=== PATIENT | female | born 1940 ===

== ENCOUNTER → 2017-01-27 | Outpatient (CLI) | payer OTHER ==
[2017-01-27 17:59] LABS: BASO % 0.7 %; BASO ABS # 0.07 K/uL (0-0.2); COMPLETE YES; EOS % 3.8 %; HEMATOCRIT 45.8 % (37-47); IG% 0.6 %; LYMPH % 21.4 %; LYMPH ABS # 2.12 K/uL (1.2-3.4); MEAN CELL VOLUME 83.1 fL (80-100); MEAN CORPUSCULAR HEMOGLOBIN 27.6 pg (25-34); MEAN CORPUSCULAR HGB CONC 33.2 g/dl (32-36); MONO % 8.1 %; NEUT % 65.4 %; PLATELET COUNT 222 K/uL (130-400); RED BLOOD COUNT 5.51 M/uL (4.2-5.4); WHITE BLOOD COUNT 9.92 K/uL (4.8-10.8)
[2017-01-27 18:28] LABS: ALT/SGPT 28 U/L (12-78); AST/SGOT 20 U/L (15-37); BLOOD UREA NITROGEN 15 mg/dl (7-18); BUN/CREATININE RATIO 16.4 (10-20); CALCIUM 9.4 mg/dl (8.5-10.1); CARBON DIOXIDE 27 mmol/L (21-32); CHLORIDE 103 mmol/L (98-107); CHOLESTEROL 202 mg/dl (0-200); CHOLESTEROL/HDL RATIO 4.1; CREATININE 0.92 mg/dl (0.60-1.20); GLUCOSE 111 mg/dl (70-99); HDL CHOLESTEROL 49 mg/dl; LDL CHOLESTEROL CALCULATED 118 mg/dl; POTASSIUM 3.9 mmol/L (3.5-5.1); SODIUM 139 mmol/L (136-145); TRIGLYCERIDES 175 mg/dl (0-150); VERY LOW DENSITY LIPOPROT CALC 35 mg/dl
[2017-01-27 18:36] LABS: ALKALINE PHOSPHATASE 56 U/L (45-117)
[2017-01-28 05:59] LABS: ESTIMATED AVERAGE GLUCOSE 137 mg/dl; HA1C FLAG Normal (Normal)
== END | disposition home or self-care (01) ==
LOC: C.LABMFLN 11:12
PROVIDERS: ATTEND Family Medicine
DX: I10 Essential (primary) hypertension (principal); E78.5 Hyperlipidemia, unspecified; R73.01 Impaired fasting glucose

== ENCOUNTER 2018-08-30 05:04 | Inpatient (IN) ==
[2018-08-17 18:06] LABS: Basophils # (auto) 0.12 K/uL (0-0.2); Eosinophils # (auto) 1.56 K/uL (0-0.5); Eosinophils % (auto) 12.4 %; Hematocrit (blood only) 43.9 % (37-47); Immature Granulocytes # (auto) 0.09 K/uL (0.00-0.02); Immature Granulocytes % (auto) 0.7 %; Lymphocytes # (auto) 2.48 K/uL (1.2-3.4); Lymphocytes % (auto) 19.7 %; Mean Corpuscular Hgb Conc 34.2 g/dL (32-36); Mean Corpuscular Volume 86.1 fL (80-100); Monocytes # (auto) 0.82 K/uL (0.11-0.59); Monocytes % (auto) 6.5 %; Neutrophils # (auto) 7.53 K/uL (1.4-6.5); Neutrophils % (auto) 59.7 %; Platelet Count 246 K/uL (130-400); RDW Coefficient of Variation 13.8 % (11.5-14.5); RDW Standard Deviation 43.1 fL (36.4-46.3)
[2018-08-17 18:11] LABS: Appearance Urine Clear (Clear); Bilirubin Urine Negative (Negative); Blood Urine Negative (Negative); Color Urine Yellow; Glucose Urine UA Negative (Negative); Ketones Urine Negative (Negative); Leukocyte Esterase Urine Negative (Negative); Nitrite Urine Negative (Negative); Protein Urine Negative (Negative); Specific Gravity Urine 1.018 (1.000-1.030); Urobilinogen Urine Negative (Negative)
[2018-08-17 18:15] LABS: Partial Thromboplastin Ratio 1.2; Partial Thromboplastin Time 31.3 Seconds (21.0-31.0); Prothrombin Time 9.8 Seconds (9.0-12.0)
[2018-08-17 18:20] LABS: Albumin Level 3.8 gm/dl (3.4-5.0); BUN Creatinine Ratio 20.4 (10-20); Calcium 9.8 mg/dl (8.5-10.1); Creatinine Clr Calc Pharmacy 55.8 ml/min; Est GFR (African American) 74.5; Est GFR (Non-African American) 64.3; Potassium 3.5 mmol/L (3.5-5.1)
[2018-08-18 05:57] LABS: Estimated Average Glucose 143 mg/dl; Hemoglobin A1C 6.6 % (4.5-5.6)
--- NOTE | 2018-08-18 11:31 | Anesthesiology Consultation ---
Date of Service August 18, 2018 Assessment & Plan (1) Encounter for pre-operative examination: - Hx glidescope intubation: Left mastectomy with SLN biopsy= 09/23/16= Glidescope size 3, ETT 7.0 (anesthesia records scanned in) - PCP: 07/05/18: "Benign mild leukocytosis related to allergies. She is medically stable and clear for L TKA." Chart Review Chart Review: Acceptable Risk for Surgery and Patient NOT seen in Pre Admission Testing History Surgery Operation Date: 08/30/18 12:40 Proposed Procedures p Left Total Knee Arthroplasty - Som Sheets MD Height/Weight Height: 5 ft 1.5 in Weight: 89.811 kg Allergies Allergy/AdvReac Type Severity Reaction Status Date / Time atorvastatin [From Lipitor] AdvReac Mild Muscle Pain Verified 08/17/18 08:14 rosuvastatin [From Crestor] AdvReac Mild Muscle Pain Verified 08/17/18 08:14 simvastatin [From Zocor] AdvReac Mild Muscle Pain Verified 08/17/18 08:14 Medications Home Medications Medication Instructions Recorded Confirmed Last Taken amlodipine [Norvasc] 5 mg PO QAM 03/22/18 08/17/18 03/22/18 calcium carbonate-vitamin D3 2 tab PO DAILY 03/22/18 08/17/18 03/21/18 [Caltrate 600 + D] hydrochlorothiazide 12.5 mg PO QAM 03/22/18 08/17/18 03/22/18 letrozole 2.5 mg PO QPM 03/22/18 08/17/18 03/21/18 lisinopril 20 mg PO BID 03/22/18 08/17/18 03/22/18 [id number]-vtp-myxdy acid-vit K 1 dose PO QAM 03/22/18 08/17/18 03/22/18 [Multi For Her 50 Plus] sertraline [Zoloft] 50 mg PO QAM 03/22/18 08/17/18 03/22/18 sodium bicarb-sodium chloride 1 packet QAM PRN 08/17/18 08/17/18 Unknown [Sinus Rinse] Past Medical History Medical History Arthritis Depression Diabetes HGBA1C 6.6% ON PREOP LABS; NO MEDS- PCP MONITORING WITH DIET CONTROL AT THIS POINT Fatty liver Hearing deficit Hiatal hernia History of cancer LARYNX CANCER S/P RESECTION; BREAST CANCER S/P LEFT MASTECTOMY ON LETROZOLE History of gout Hypertension Obesity Past Family History Family History Father Family history of bone cancer Brother Family history of malignant melanoma Sister Family history of breast cancer Family history of pancreatic cancer Mother Family history of bladder cancer Family history of breast cancer Family history of throat cancer Past Surgical History Surgical History History of difficult intubation Left mastectomy with SLN biopsy= 09/23/16= Glidescope size 3, ETT 7.0 (anesthesia records scanned in) History of colonoscopy History of endoscopy History of hysterectomy History of left mastectomy History of throat surgery LARYNX CANCER S/P RESECTION (40 YEARS AGO) Social History Smoking Status: Never smoker Do You Dip or Chew Tobacco: No Hx Alcohol Use: No Hx Substance Use: No substance use type: does not use Testing Laboratory Results 08/17/18 11:34 08/17/18 11:34 PT 9.8 Seconds (9.0-12.0) 08/17/18 11:34 INR 1.0 (0.9-1.1) 08/17/18 11:34 APTT 31.3 Seconds (21.0-31.0) H 08/17/18 11:34 Hemoglobin A1c 6.6 % (4.5-5.6) H 08/17/18 11:34 Urine Color Yellow 08/17/18 11:49 Urine Appearance Clear (Clear) 08/17/18 11:49 Urine pH 6.0 (4.5-7.5) 08/17/18 11:49 Ur Specific [place] 1.018 (1.000-1.030) 08/17/18 11:49 Urine Protein Negative (Negative) 08/17/18 11:49 Urine Glucose (UA) Negative (Negative) 08/17/18 11:49 Urine Ketones Negative (Negative) 08/17/18 11:49 Urine Nitrite Negative (Negative) 08/17/18 11:49 Ur Leukocyte Esterase Negative (Negative) 08/17/18 11:49 Blood Type A Positive 08/17/18 11:34 Antibody Screen NEGATIVE 08/17/18 11:34 Surgeon aware of elevated WBC; felt 2/2 allergies and "benign" per PCP Electrocardiogram Date: 03/28/18 NSR at 89bpm. LAFB. Echocardiogram Date: 12/22/17 LVEF 70%. Grade I DD. No RWMA. Mild TR. PASP 28mmhg. Mild AV sclerosis. Other Testing Chest CT= 03/02/18= Minimal scattered atelectasis/scarring in both lung without f ocal airspace consolidation. Suggestive metastatic disease. Hiatal hernia. Hepatic steatosis.
--- NOTE | 2018-08-24 16:39 | Hospitalist Consultation ---
Date of Consultation August 24, 2018 Assessment & Plan (1) Osteoarthritis of left knee: S/p left TKA with Dr. Sheets on 08/24. - Post operative management per ortho - PT/OT per primary team - DVT prophylaxis per primary (2) Benign essential hypertension: On amlodipine, HCTZ, and lisinopril at home. Well-controlled with last o/p reading of 140/80. - Continue home meds (3) Asthma: Only uses a PRN inhaler as outpatient. - Albuterol PRN (4) Breast cancer: No inpatient needs. - Continue letrozole (5) Anxiety: - Continue sertraline (6) Leukocytosis: Due to eosinophilia from allergies. Follow with hematology outpatient. - No inpatient needs (7) DVT prophylaxis: Per primary team History of Present Illness Attending Physician: Som Sheets MD History of Present Illness 78yo F w/ hx of mild leukocytosis from eosinophilia, HTN, asthma, and anxiety who presents as medical management consultation. Overall, she has had long-standing left knee pain, initially treated conservatively. She underwent left TKA with Dr. Sheets on 08/24. She reports her Allergies Allergy/AdvReac Type Severity Reaction Status Date / Time atorvastatin [From Lipitor] AdvReac Mild Muscle Pain Verified 08/17/18 08:14 rosuvastatin [From Crestor] AdvReac Mild Muscle Pain Verified 08/17/18 08:14 simvastatin [From Zocor] AdvReac Mild Muscle Pain Verified 08/17/18 08:14 Home Medications Home Medications Medication Instructions Recorded Confirmed Type amlodipine [Norvasc] 5 mg PO QAM 03/22/18 08/17/18 History calcium carbonate-vitamin D3 2 tab PO DAILY 03/22/18 08/17/18 History [Caltrate 600 + D] hydrochlorothiazide 12.5 mg PO QAM 03/22/18 08/17/18 History letrozole 2.5 mg PO QPM 03/22/18 08/17/18 History lisinopril 20 mg PO BID 03/22/18 08/17/18 History xzsywpcb-mpf-hiwem acid-vit K 1 dose PO QAM 03/22/18 08/17/18 History [Multi For Her 50 Plus] sodium bicarb-sodium chloride 1 packet QAM PRN 08/17/18 08/17/18 History [Sinus Rinse] sertraline 50 mg tablet 50 mg PO QAM #90 tab 08/21/18 Rx coenzyme Q10 200 mg capsule PO .Take 1 tablet daily cap 08/23/18 08/23/18 History Patient History Medical History Anxiety (Acute) Asthma (Acute) Benign essential hypertension (Acute) Breast cancer (Acute) Hyperlipidemia (Acute) Impaired fasting glucose (Acute) Leukocytosis (Acute) Osteoarthritis of left knee (Acute) Arthritis Depression Diabetes HGBA1C 6.6% ON PREOP LABS; NO MEDS- PCP MONITORING WITH DIET CONTROL AT THIS POINT Fatty liver Hearing deficit Hiatal hernia History of cancer LARYNX CANCER S/P RESECTION; BREAST CANCER S/P LEFT MASTECTOMY ON LETROZOLE History of gout Hypertension Obesity Surgical History History of difficult intubation Left mastectomy with SLN biopsy= 09/23/16= Glidescope size 3, ETT 7.0 (anesthesia records scanned in) History of colonoscopy History of endoscopy History of hysterectomy History of left mastectomy History of throat surgery LARYNX CANCER S/P RESECTION (40 YEARS AGO) Family History Father Family history of bone cancer Brother Family history of malignant melanoma Sister Family history of breast cancer Family history of pancreatic cancer Mother Family history of bladder cancer Family history of breast cancer Family history of throat cancer Grandmother Leukemia Social History Preferred Language: [place] Communication Ability: Effective Vamp Strap Ironer Required: No Beliefs That Will Affect Care: None Current Living Situation: Alone Current Living Situation Comment: [facility] TUESDAY THROUGH TUESDAY Other Information That Helps Us Care for You: No Feels Safe at Home: Yes Safety Concerns: Feels Safe At This Time Smoking Status: Never smoker Do You Dip or Chew Tobacco: No Second Hand Exp osure: Yes (PAST EXPOSURE) Tobacco Cessation Education Requested by Patient: No Hx Alcohol Use: No Hx Substance Use: No Review of Systems Review of Systems: All systems reviewed & are unremarkable except as noted in HPI & below Physical Exam Constitutional: WD/WN, vitals as above Eyes: EOM intact bilaterally; no conjunctival abnormality ENMT: external ear and nose normal, oropharynx normal Neck: trachea midline, no thyromegaly normal visual inspection Respiratory: normal respiratory effort, lungs clear to auscultation no respiratory distress Cardiovascular: RRR, no murmur, no edema Gastrointestinal (Abdomen): Inspection/Auscultation: abdomen normal to inspection; abdomen not distended Musculoskeletal: no cyanosis or clubbing, extremities motor strength 5/5 Knee: + surgical incision (Left knee) Skin: no rashes, warm and dry Neurologic: moves all extremities and awake Psychiatric: Orientation: alert, oriented to person and cooperative PG Care Time/CCT Total # of Minutes Spent Total Time Spent with Patient: Total time spent is greater than 50% in coordination of care (as documented) at patient's floor/unit and/or counseling patient:
--- NOTE | 2018-08-29 12:45 | History and Physical Report ---
DATE OF ADMISSION: 08/30/2018 CHIEF COMPLAINT: Chronic left knee pain. HISTORY OF PRESENT ILLNESS: This is a 78-year-old female patient of Dr. Sheets'zan complaining of chronic left knee pain, longstanding, now progressively getting worse. The patient has failed conservative treatment including intraarticular injections, Tylenol, the use of a cane and the use of a brace. The patient has increased pain with weightbearing activities and her pain does interfere with her activities of daily living. The patient has been diagnosed with end-stage osteoarthritis per clinical and radiographic exams and wishes to proceed with an elective left total knee arthroplasty. PAST MEDICAL HISTORY: Benign heart murmur, hypertension, asthma, seasonal allergies, anxiety, osteoarthritis, hiatal hernia, obesity, breast cancer and vocal cord cancer. SOCIAL HISTORY: Nonsmoker, nondrinker. FAMILY HISTORY: Noncontributory. REVIEW OF SYSTEMS: Chronic left knee pain and instability. Otherwise, denies any shortness of breath, chest pain, nausea, vomiting or any other joint complaints. PAST SURGICAL HISTORY: Hysterectomy, lumpectomy, breast and vocal cord surgery. MEDICATIONS: Amlodipine 5 mg daily, letrozole 2.5 mg daily, lisinopril 20 mg daily, hydrochlorothiazide 12.5 mg daily, sertraline 50 mg daily, daily vitamin. ALLERGIES: INCLUDE STATINS. PHYSICAL EXAMINATION: GENERAL: Well-developed, well-nourished 78-year-old female in no acute distress. She is alert and oriented x3 and pleasant. HEENT: Normocephalic, atraumatic. Extraocular motions are intact. Pupils were equal and reactive to light. HEART: Regular rate and rhythm. She has got a 2/6 murmur noted. LUNGS: Clear. ABDOMEN: Soft and nontender. Bowel sounds are present. EXTREMITIES: Left knee reveals limited motion of negative 10-95 degrees. She has a mild effusion. The patient is stable. She has 4/5 strength with pain. She has crepitation with passive range of motion. NEUROLOGIC: Neurovascularly, she is intact in her left lower extremity. DIAGNOSES: Left knee end-stage osteoarthritis, benign heart murmur, asthma, seasonal allergies, anxiety, osteoarthritis, hiatal hernia, obesity, history of breast cancer and vocal cord cancer. PLAN: The patient was advised of her diagnosis. Indications, risks, benefits, postop course have all been reviewed. The patient wished to proceed with a left total knee arthroplasty. Necessary consent forms, preoperative testing clearances will be obtained.
[2018-08-30] MEDS ORDERED: METOCLOPRAMIDE HCL 10 MG TABLET PO SCH (06:00)
[2018-08-30] MEDS ORDERED: GABAPENTIN 300 MG PO SCH (06:00)
[2018-08-30] MEDS ORDERED: TRANEXAMIC ACID 1,000 MG **IV Pre-op IV SCH (06:00)
[2018-08-30] MEDS ORDERED: ROPIVACAINE 0.5% HCL/PF 150 MG, BUPIVACAINE 0.5% MPF 30 ML, EPINEPHrine 30MG/30ML (OR U... INSTIL SCH (06:00)
[2018-08-30] MEDS ORDERED: FAMOTIDINE 20 MG TAB PO SCH (06:00)
[2018-08-30] MEDS ORDERED: dexAMETHasone 4 MG TAB PO SCH (06:00)
[2018-08-30] MEDS ORDERED: CeleBREX 200 MG CAP PO SCH (06:00)
[2018-08-30] MEDS ORDERED: LR 500ML BOLUS, THEN 15ML/HR IV SCH (06:00)
[2018-08-30] MEDS ORDERED: CEFAZOLIN 2000MG 2,000 MG/15 ML SYR IV SCH (06:00)
[2018-08-30] MEDS ORDERED: ACETAMINOPHEN 500 MG TAB PO SCH (06:00)
[2018-08-30] MEDS ORDERED: BUPIVACAINE 0.5 % 5 MG/1 ML PF 10ML VIAL ONE (06:28)
[2018-08-30] MEDS ORDERED: ROPIVACAINE 0.5% 5 MG/ML 30 ML VIAL ONE (06:29)
[2018-08-30] MEDS ORDERED: TRANEXAMIC ACID 1,000 MG **IV Intra-op IV SCH (06:30)
[2018-08-30] MEDS ORDERED: MIDAZOLAM HCL 1 MG/ML 2ML VIAL ONE ×2 (06:40)
[2018-08-30] MEDS ORDERED: fentaNYL citrate 100 MCG/2 ML VIAL ONE (06:41)
[2018-08-30] MEDS ORDERED: ORTHO JOINT ANESTHETIC ONE (06:43)
[2018-08-30] MEDS ORDERED: BACITRACIN INJ 50,000 UNIT VIAL ONE (06:43)
[2018-08-30] MEDS ORDERED: ATROPINE SULFATE 0.1 MG/ML 10ML SYR IV PRN (06:48)
[2018-08-30] MEDS ORDERED: ePHEDrine sulfate 50 MG/ML AMP IV PRN (06:48)
[2018-08-30] MEDS ORDERED: ONDANSETRON INJ 2 MG/ML 2 ML VIAL IV PRN ×2 (06:48→10:24)
[2018-08-30] MEDS ORDERED: fentaNYL citrate 100 MCG/2 ML VIAL IV PRN (06:48)
--- NOTE | 2018-08-30 07:13 | History & Physical Bridge Note ---
Date of Service August 30, 2018 History & Physical Bridge Note I have examined the patient, reviewed the History & Physical and in the interval since the performance of the History & Physical I have noted the following changes of clinical significance: no changes noted
[2018-08-30] MEDS ORDERED: ePHEDrine sulfate 50 MG/ML SYR ONE (07:37)
[2018-08-30] MEDS ORDERED: PHENYLEPHRINE HCL 10 MG/ML VIAL ONE (07:37)
[2018-08-30] MEDS ORDERED: PROPOFOL IV EMULSION 10 MG/ML 20 ML VIAL IV ONE (07:37)
[2018-08-30] MEDS ORDERED: LIDOCAINE HCL 2% 2 ML VIAL/AMP(20MG/ML) INFIL ONE (08:00)
--- NOTE | 2018-08-30 09:07 | Post Operative Brief Note ---
Immediate Post Op Note v1 Date of Surgery August 30, 2018 Pre & Post Diagnosis Operation Date: 08/30/18 07:00 Pre-Op Diagnosis: LEFT KNEE OSTEOARTHRITIS,obesity bmi 37 Post-Op Diagnosis: LEFT KNEE OSTEOARTHRITIS,obesity bmi 37 Procedure Operation Date: 08/30/18 07:00 Actual Procedures p Left Total Knee Arthroplasty(Left) - Som Sheets MD Surgeon Som Sheets MD Network Firewall Engineer Elkin RENO Estimated Blood Loss 5 Findings Consistent with Post-Op Diagnosis Specimens Bone cuts Drains Hemovac Drain Anesthesia Type MAC Spinal Regional Complications none Disposition Disposition: Recovery Room Overlapping Procedure I was present for: the critical portions of procedure.
--- NOTE | 2018-08-30 09:59 | Anesthesiology Progress Note ---
Date of Service August 30, 2018 Anesthesia Post Procedure Vital Signs Vital Signs: Temp Pulse Pulse Resp BP Pulse Ox 08/30/18 09:55 86 16 108/62 94 08/30/18 09:45 87 16 131/62 93 08/30/18 09:35 100.0 F H 94 H 16 101/59 L 93 08/30/18 05:47 98.1 F 92 H 20 185/88 H 96 Pain Intensity Left Knee: Pain Intensity: 8 Transfer of Care Handoff Completed per policy Notes Mental Status: alert / awake / arousable and participated in evaluation Patient Amnestic to Procedure: Yes Nausea / Vomiting: adequately controlled Pain: adequately controlled Airway Patency, RR, SpO2: stable & adequate BP & HR: stable & adequate Hydration State: stable & adequate Neuraxial Anesthesia: was administered and sensory block is resolving Anesthetic Complications: no major complications apparent and Pt Satisfied with anesthetic care
--- NOTE | 2018-08-30 10:03 | XRay Report ---
LEFT KNEE 2 VIEWS History: Left total knee arthroplasty. Degenerative arthritis. Postop. FINDINGS: The patient is status post a left total knee arthroplasty. The hardware is intact. No fract ure or dislocation. Skin rose marie and surgical drains are in place. IMPRESSION: Left total knee arthroplasty. No evidence for hardware complication. Electronically signed by: Armen Gardner M.D. 08/30/2018 10:02 AM
[2018-08-30] MEDS ORDERED: OXYCODONE HCL IR 5 MG TAB (IMMEDIATE RELEASE) PO PRN (10:24)
[2018-08-30] MEDS ORDERED: MAGNESIUM HYDROXIDE SUSP 30 ML UDC PO PRN (10:24)
[2018-08-30] MEDS ORDERED: HYDROmorphone INJ 0.5 MG/0.5 ML SYR IV PRN (10:24)
[2018-08-30] MEDS ORDERED: SODIUM CHLORIDE 0.65% NA SOLN 45 ML (OCEAN) PRN (10:24)
[2018-08-30] MEDS ORDERED: NALOXONE HCL 0.4 MG/1 ML VIAL/CARP IV PRN (10:24)
[2018-08-30] MEDS ORDERED: SODIUM CHLORIDE FLUSH PRN (10:24)
[2018-08-30] MEDS ORDERED: SODIUM BICARBONATE FLUSH PRN (10:24)
[2018-08-30] MEDS ORDERED: BISACODYL 10 MG SUPP PR PRN (10:24)
[2018-08-30] MEDS: SODIUM CHLORIDE 0.9% 1000ML 1,000 ML IV SCH ×2 (10:58→21:16)
[2018-08-30] MEDS ORDERED: CARBAMIDE PEROXIDE 6.5% 15 ML BTL OT SCH (11:30)
[2018-08-30] MEDS: ACETAMINOPHEN 500 MG TAB PO SCH ×2 (14:05→22:13)
[2018-08-30] MEDS: CEFAZOLIN 2000MG 2,000 MG/15 ML SYR IV SCH ×2 (14:05→23:53)
--- NOTE | 2018-08-30 14:20 | Operative Report ---
Post Operative Report Pre & Post Diagnosis Operation Date: 08/30/18 07:00 Pre-Op Diagnosis: LEFT KNEE OSTEOARTHRITIS, obesity BMI 37 Post-Op Diagnosis: LEFT KNEE OSTEOARTHRITIS, obesity BMI 37 Procedure Operation Date: 08/30/18 07:00 Actual Procedures p Left Total Knee Arthroplasty(Left), increased difficulty obesity BMI 37- Som Sheets MD Surgeon Som Sheets MD Driver Education Road Instructor Elkin RENO Estimated Blood Loss 5 Findings Consistent with Post-Op Diagnosis Specimens Bone cuts Drains 2 Hemovac Anesthesia Type MAC Spinal Regional Indications 78-year-old female with severe osteoarthritis of her left knee. She is a varus knee [id number] medial compartment some bone loss in the medial compartment. She has limited range of motion. Description of Procedure Patient taken to the operating room the size under spinal regional block anesthesia. Patient was placed supine on the operating table. A pneumatic tourniquet was placed about the left upper obese thigh. The left lower extremity was prepped and draped in sterile fashion. Knee exam demonstrated 15 degree flexion contracture flexion to 95 degrees only no instability and a very stiff knee. The leg was elevated exsanguinated with an Esmarch bandage and pne umatic tourniquet was raised to 350 millimeters of mercury. Skin incised sharply in longitudinal fashion. Moderate Garcia deep layer of fat was divided down to the fascia. Subcutaneous flaps elevated. Incision was made through the medial retinaculum extending up in the mid third of the quadriceps tendon and down to the medial tibial tubercle. Intra-articular findings demonstrated tricompartmental DJD eart-xn-yedm medial compartment with some bone loss and eburnated bone and ridging some loose bodies and large posterior osteophytes on the femoral condyle. The Qazzow triathlon total knee arthroplasty system was used. To expose the knee the infrapatellar fat pad was resected. The meniscal remnants and cruciate ligaments were resected. The anterior fat pad over the femur in the area of the anterior flange of the femoral component was resected. Lateral synovial bands release. The femur was exposed. An intramedullary drill hole was made into the canal. A guide breanne was placed. Distal femoral cutting guide was adjusted to resect a 5 degree valgus cut with 10 millimeters distal femur resected. The knee was extended and a subperiosteal peel lateral release was performed around the patella. Patella width was measured and width was reproduced using a freehand cut technique and a 31 patella component. The 3 drill holes were made and the excess lateral facet was beveled off to prevent any impingement. Attention was taken back to the femur which was exposed with retractors and the femoral sizing guide was pinned in position. The drill holes were placed in 3 of external rotation to match epicondylar axis. Femur sized for a 3 component. The 4-in-1 cutting block was placed and then the anterior posterior and chamfer cuts are made. The tibia was then subluxed. The external tibial cutting guide was just to make a perpendicular cut to the long axis of the tibia below the most deficient bone loss side. A lamina command and control systems integrator was used and the flexion extension gaps were balanced. Medial and posterior medial releases were performed to balance ligaments. All posterior osteophytes removed. All meniscal remnants were resected. The tibia exposed and the trial tibial component size 3 was externally rotated in line with the tibial tubercle and pinned in position. The punch for stem was used. The notch cutting device was centered appropriately and the femoral notch cut was made. The femoral trial was inserted. The drill for the distal fixation pegs was utilized. Trial tibial inserts were placed and size 11 gave balanced ligaments through flexion and extension. Patella tracking was assessed. The patella tracked centrally. The trial components were then removed and the orthomix anesthetic cocktail was injected per protocol. The knee was then copiously irrigated with pulsatile lavage antibiotic solution. Final components were then cemented with Simplex cement. Final components were triathlon left posterior stabilized femoral component with distal femoral fixation pegs size 3, 3 primary tibial baseplate, 3 x 11 mm X3 poly-posterior stabilized tibial bearing insert and the X3 symmetrical patella size 31 x 9. While the cement cured the Betadine soak was used per protocol. After cement cured further pulsatile lavage irrigation performed and 2 Hemovac drains were brought out laterally. The quadriceps tendon and medial retinaculum were closed with figure of 8 #1 Vicryl sutures. The knee was taken through full range of motion and the repair was secure. The subcutaneous tissues were closed with 2-0 Vicryl sutures. Skin was closed with rose marie. Sterile dressings were applied. Patient procedure well. There was some increased level of difficulty with exposure due to her obesity. Elkin RENO was my physician video production assistant who assisted in patient positioning prepping and draping,leg positioning ,soft tissue retraction and instrument management and participated in the closing and will participate in postoperative care of the patient. The patient tolerated the procedure well. I attest to the content of the Intraoperative Record and any orders documented therein. Any exceptions are noted below.
--- NOTE | 2018-08-30 16:25 | Hospitalist Consultation ---
Date of Consultation August 30, 2018 Assessment & Plan (1) Osteoarthritis of left knee: S/p left TKA with Dr. Sheets on 08/30. - Post operative management per ortho - PT/OT per primary team - DVT prophylaxis per primary (2) Benign essential hypertension: On amlodipine, HCTZ, and lisinopril at home - Continue home meds (3) Asthma: Only uses a PRN inhaler as outpatient. - Albuterol PRN (4) Breast cancer: Hx of L mastectomy 2 yrs ago - Continue letrozole (5) Anxiety: - Continue sertraline (6) DVT prophylaxis: Per primary team History of Present Illness Attending Physician: Som Sheets MD History of Present Illness 78 y/o F who was admitted on 08/30 s/p L TKA with Dr. Sheets. Pt is doing well post-op. Tolerating PO without issue. Pt denies fever, SOB, chest pain, abd pain, n/v/c/d, LE swelling. She has no pain at present. Allergies Allergy/AdvReac Type Severity Reaction Status Date / Time atorvastatin [From Lipitor] AdvReac Mild Muscle Pain Verified 08/30/18 05:38 rosuvastatin [From Crestor] AdvReac Mild Muscle Pain Verified 08/30/18 05:38 simvastatin [From Zocor] AdvReac Mild Muscle Pain Verified 08/30/18 05:38 Home Medications Home Medications Medication Instructions Recorded Confirmed Type amlodipine [Norvasc] 5 mg PO QAM 03/22/18 08/30/18 History calcium carbonate-vitamin D3 2 tab PO DAILY 03/22/18 08/30/18 History [Caltrate 600 + D] hydrochlorothiazide 12.5 mg PO QAM 03/22/18 08/30/18 History letrozole 2.5 mg PO QPM 03/22/18 08/30/18 History lisinopril 20 mg PO BID 03/22/18 08/30/18 History oiuuyqzs-dfi-dgoht acid-vit K 1 dose PO QAM 03/22/18 08/30/18 History [Multi For Her 50 Plus] sodium bicarb-sodium chloride 1 packet QAM PRN 08/17/18 08/17/18 History [Sinus Rinse] sertraline 50 mg tablet 50 mg PO QAM #90 tab 08/21/18 08/30/18 Rx coenzyme Q10 200 mg capsule 200 mg PO .Take 1 tablet daily cap 08/23/18 08/30/18 History carbamide peroxide [Ear Drops Otc] See Rx Instructions .ROUTE .COMPLEX 08/30/18 08/30/18 History sodium chloride [Saline Nasal] 1 spray INTRANASAL DAILY PRN 08/30/18 08/30/18 History Patient History Medical History Anxiety (Acute) Asthma (Acute) Benign essential hypertension (Acute) Breast cancer (Acute) Hyperlipidemia (Acute) Impaired fasting glucose (Acute) Leukocytosis (Acute) Osteoarthritis of left knee (Acute) Hearing deficit Arthritis Depression Diabetes HGBA1C 6.6% ON PREOP LABS; NO MEDS- PCP MONITORING WITH DIET CONTROL AT THIS POINT Fatty liver Hiatal hernia History of cancer LARYNX CANCER S/P RESECTION; BREAST CANCER S/P LEFT MASTECTOMY ON LETROZOLE History of gout Hypertension Obesity Surgical History History of difficult intubation Left mastectomy with SLN biopsy= 09/23/16= Glidescope size 3, ETT 7.0 (anesthesia records scanned in) History of colonoscopy History of endoscopy History of hysterectomy History of left mastectomy History of throat surgery LARYNX CANCER S/P RESECTION (40 YEARS AGO) Family History Father Family history of bone cancer Brother Family history of malignant melanoma Sister Family history of breast cancer Family history of pancreatic cancer Mother Family history of bladder cancer Family history of breast cancer Family history of throat cancer Myocardial infarction Grandmother Leukemia Social History Preferred Language: Romansh Communication Ability: Effective Industrial Relations Director Required: No Beliefs That Will Affect Care: None Current Living Situation: Alone Current Living Situation Comment: [facility] TUESDAY THROUGH TUESDAY Other Information That Helps Us Care for You: No Feels Safe at Home: Yes Safety Concerns: Feels Safe At This Time Smoking Status: Never smoker Do You Dip or Chew Tobacco: No Second Hand Exposure: Yes (PAST EXPOSURE) Tobacco Cessation Education Requested by Patient: No Hx Alcohol Use: No Hx Substance Use: No Review of Systems Review of Systems: Pertinent positives and negatives reviewed in HPI--all others negative Physical Exam Constitutional: WD/WN, vitals as above Eyes: normal visual bergman by confrontation and + anicteric sclerae Neck: normal visual inspection and trachea midline Respiratory: normal respiratory effort, lungs clear to auscultation Cardiovascular: Rate/Rhythm: regular rate and regular rhythm Gastrointestinal (Abdomen): Inspection/Auscultation: abdomen not distended Percussion/Palpation: abdomen soft; abdomen nontender Musculoskeletal: Head/Neck/Chest: normocephalic and head atraumatic negative for edema, peripheral pulses intact Skin: no rashes, warm and dry Neurologic: awake; not confused Speech / Cognition: normal speech Psychiatric: A+Ox3, euthymic affect Results & Data Vital Signs (Past 12 Hours) Vital Signs Temp Pulse Pulse Resp BP Pulse Ox 08/30/18 15:37 36.6 C 91 H 16 121/68 92 08/30/18 12:54 36.6 C 66 20 129/77 98 08/30/18 12:27 36.7 C 69 20 137/74 97 08/30/18 11:15 85 16 129/77 92 08/30/18 10:48 36.8 C 89 20 140/73 97 08/30/18 10:15 36.8 C 87 17 121/70 96 08/30/18 10:02 37.0 C 86 16 116/65 94 08/30/18 09:55 86 16 108/62 94 08/30/18 09:45 87 16 131/62 93 08/30/18 09:35 37.8 C H 94 H 16 101/59 L 93 08/30/18 05:47 36.7 C 92 H 20 185/88 H 96 PG Care Time/CCT Total # of Minutes Spent Total Time Spent with Patient: Total time spent is greater than 50% in coordination of care (as documented) at patient's floor/unit and/or counseling patient:
[2018-08-30] MEDS: LETROZOLE 2.5 MG TAB PO SCH (21:17)
[2018-08-30] MEDS: DOCUSATE SODIUM 100 MG CAP PO SCH (21:17)
[2018-08-30] MEDS: CeleBREX 200 MG CAP PO SCH (21:18)
[2018-08-30] MEDS: ASPIRIN 81 MG ECTAB PO SCH (21:18)
[2018-08-30] MEDS: SENNA 8.6 MG TAB PO SCH (21:18)
[2018-08-30] MEDS: LISINOPRIL 20 MG TAB PO SCH (21:19)
[2018-08-31 06:12] LABS: Hematocrit (blood only) 35.3 % (37-47); Hemoglobin 11.6 g/dL (12.0-16.0); Mean Corpuscular Hgb Conc 32.9 g/dL (32-36); Mean Corpuscular Volume 87.6 fL (80-100); Platelet Count 204 K/uL (130-400); RDW Coefficient of Variation 13.9 % (11.5-14.5); RDW Standard Deviation 44.9 fL (36.4-46.3); Red Blood Count 4.03 M/uL (4.2-5.4); White Blood Count 16.78 K/uL (4.8-10.8)
[2018-08-31] MEDS: ACETAMINOPHEN 500 MG TAB PO SCH ×3 (06:19→22:18)
[2018-08-31 06:51] LABS: BUN Creatinine Ratio 20.1 (10-20); Calcium 8.6 mg/dl (8.5-10.1); Creatinine Clr Calc Pharmacy 54.7 ml/min; Est GFR (African American) 72.5; Est GFR (Non-African American) 62.5; Potassium 4.2 mmol/L (3.5-5.1)
--- NOTE | 2018-08-31 07:56 | Orthopedic Progress Note ---
Date of Service August 31, 2018 Assessment & Plan (1) S/P total knee arthroplasty: POD #1 left total knee arthroplasty Pain management DVT prophylaxisaspirin, SCDs, teds PT/OT A.m. labs hemoglobin 11.6 this morning acute blood loss anemia likely due to surgical loss versus dilutional effect Discharge planningpatient plans on going home with home health PT upon discharge from the hospital, likely tomorrow Subjective Patient is POD 1 from left total knee arthroplasty. Doing well this morning. Having minimal pain. No other complaints. Denies chest pain, shortness breath, dizziness, nausea, vomiting, diarrhea. Review of Systems Review of Systems: All systems reviewed & are unremarkable except as noted in HPI & below Physical Exam Physical Exam: Patient is sitting in bedside chair. Dressing is clean dry and intact. No calf tenderness. Toes are mobile, good strength with dorsiflexion. Distally neurovascularly intact. Results & Data Vital Signs (Past 12 Hours) Vital Signs Temp Pulse Resp BP Pulse Ox 08/31/18 07:03 36.5 C 71 18 157/77 H 96 08/31/18 04:05 36.4 C L 74 18 149/74 H 94 08/30/18 23:10 36.8 C 89 20 116/66 93
[2018-08-31] MEDS: SERTRALINE HCL 50 MG TABLET PO SCH (08:11)
[2018-08-31] MEDS: hydroCHLOROthiazide 25 MG TAB PO SCH (08:11)
[2018-08-31] MEDS: LISINOPRIL 20 MG TAB PO SCH ×2 (08:11→20:33)
[2018-08-31] MEDS: CEROVITE ADV FORMULA TAB PO SCH (08:11)
[2018-08-31] MEDS: DOCUSATE SODIUM 100 MG CAP PO SCH ×2 (08:12→20:33)
[2018-08-31] MEDS: CeleBREX 200 MG CAP PO SCH ×2 (08:12→20:33)
[2018-08-31] MEDS: AMLODIPINE BESYLATE 5 MG TAB PO SCH (08:12)
[2018-08-31] MEDS: CALCIUM 600MG + VIT D 400 IU TAB PO SCH (08:12)
[2018-08-31] MEDS: ASPIRIN 81 MG ECTAB PO SCH ×2 (08:12→20:33)
[2018-08-31] MEDS ORDERED: MULTIVITAMIN TAB PO SCH (09:00)
--- NOTE | 2018-08-31 14:24 | Hospitalist Progress Note ---
Date of Service August 31, 2018 Assessment & Plan (1) Osteoarthritis of left knee: - S/p Left TKA on 08/30, POD#1. - Pain control per primary team. - DVT ppx with ASA 81 mg BID. - PT/OT evaluation. - Monitor CBC daily to evaluate for acute blood loss. (2) Benign essential hypertension: - Continue home Amlodipine, HCTZ, Lisinopril as prescribed. - SBP 140-150's. (3) Asthma: - Albuterol prn. (4) Breast cancer: - H/o L mastectomy 2 yrs ago - Continue home Letrozole. (5) Anxiety: - Continue Zoloft as prescribed. (6) Leukocytosis: - Chronic leukocytosis - thought to be related to allergies or asthma due to elevated eosinophil counts. - Slight increase above baseline -- likely related to preop Decadron. - Monitor CBC daily. (7) Obesity (BMI 30-39.9): - BMI 37 -- encourage weight loss and exercise. (8) DVT prophylaxis: - ASA 81 mg BID. Dispo: Pt. is medically stable, will sign off. Supervising Physician Co-Signing Physician Notes PA Supervision Note: I did not personally see or examine the patient today, but I verified all whitehead points of ROWDY Ibanez's assessment and plan with the following exceptions/additions: None Subjective Pt. is doing well, no complaints today. Review of Systems Review of Systems: All systems reviewed & are unremarkable except as noted in HPI & below Constitutional: no fever, no chills, no fatigue and no weakness Respiratory: no cough, no dyspnea and no dyspnea on exertion Cardiovascular: no chest pain, no palpitations and no edema Gastrointestinal: no abdominal pain, no nausea, no vomiting and no diarrhea/loose stools Genitourinary: no difficulty urinating Musculoskeletal: no back pain and no joint pain Integumentary: no non-healing lesions Physical Exam Physical Exam: General: Resting comfortably HEENT: NC/AT; PERRLA with EOMI; Blacktail conjunctiva, MMM. No erythema of posterior pharynx Neck: Supple and nontender Cardiac: RRR Lungs: CTA bilaterally Abdomen: Bowel normoactive X 4; Nontender to palpation Extremities: Warm. No edema present Neuro: No focal weakness Skin: No rash Results & Data Vital Signs (Past 12 Hours) Vital Signs Temp Pulse Resp BP Pulse Ox 08/31/18 07:03 36.5 C 71 18 157/77 H 96 08/31/18 04:05 36.4 C L 74 18 149/74 H 94 Laboratory Results 08/31/18 08/31/18 Range/Units 05:51 05:51 WBC 16.78 H (4.8-10.8) K/uL RBC 4.03 L (4.2-5.4) M/uL Hgb 11.6 L (12.0-16.0) g/dL Hct 35.3 L (37-47) % MCV 87.6 (80-100) fL MCH 28.8 (25-34) pg MCHC 32.9 (32-36) g/dL RDW Std Deviation 44.9 (36.4-46.3) fL RDW Coeff of Sabrina 13.9 (11.5-14.5) % Plt Count 204 (130-400) K/uL MPV 12.0 H (7.4-10.4) fL Sodium 140 (136-145) mmol/L Potassium 4.2 (3.5-5.1) mmol/L Chloride 108 H (98-107) mmol/L Carbon Dioxide 24 (21-32) mmol/L Anion Gap 8.0 (3-11) BUN 18 (7-18) mg/dl Creatinine 0.89 (0.6-1.2) mg/dl Est Cr Clr Drug Dosing 54.7 ml/min Est GFR ( Amer) 72.5 Est GFR (Non-Af Amer) 62.5 BUN/Creatinine Ratio 20.1 H (10-20) Glucose 133 H (70-99) mg/dl Calcium 8.6 (8.5-10.1) mg/dl PG Care Time/CCT Total # of Minutes Spent Total Time Spent with Patient: Total time spent is greater than 50% in coordination of care (as documented) at patient's floor/unit and/or counseling patient:
[2018-08-31] MEDS: LETROZOLE 2.5 MG TAB PO SCH (20:33)
[2018-08-31] MEDS: SENNA 8.6 MG TAB PO SCH (20:34)
[2018-09-01] MEDS: ACETAMINOPHEN 500 MG TAB PO SCH (05:24)
[2018-09-01 05:40] LABS: Hemoglobin 11.3 g/dL (12.0-16.0); Mean Corpuscular Hgb Conc 33.2 g/dL (32-36); Mean Corpuscular Volume 87.6 fL (80-100); Mean Platelet Volume 11.7 fL (7.4-10.4); Platelet Count 186 K/uL (130-400); RDW Coefficient of Variation 14.2 % (11.5-14.5); RDW Standard Deviation 45.4 fL (36.4-46.3); Red Blood Count 3.88 M/uL (4.2-5.4)
[2018-09-01 06:11] LABS: BUN Creatinine Ratio 27.7 (10-20); Calcium 8.6 mg/dl (8.5-10.1); Creatinine Clr Calc Pharmacy 60.8 ml/min; Est GFR (African American) 82.4; Est GFR (Non-African American) 71.1; Potassium 3.9 mmol/L (3.5-5.1)
--- NOTE | 2018-09-01 07:51 | Orthopedic Progress Note ---
Date of Service September 01, 2018 Assessment & Plan (1) S/P total knee arthroplasty: POD #2 left total knee arthroplasty Pain management DVT prophylaxisaspirin, SCDs, teds PT/OT Discharge planningpatient plans on going home with home health PT upon discharge from the hospital, today. Subjective Patient is POD 2 from left total knee arthroplasty. Doing well this morning. Having minimal pain. No other complaints. Denies chest pain, shortness breath, dizziness, nausea, vomiting, diarrhea. Physical Exam Physical Exam: Left knee silverlon dressing c/d/i, no drainage, no erythema, toes and ankle mobile, A&Ox3. Results & Data Vital Signs (Past 12 Hours) Vital Signs Temp Pulse Pulse Resp BP Pulse Ox 09/01/18 06:21 36.7 C 94 H 18 155/79 H 92 08/31/18 23:58 36.4 C L 95 H 14 163/82 H 94
[2018-09-01] MEDS: AMLODIPINE BESYLATE 5 MG TAB PO SCH (07:54)
[2018-09-01] MEDS: SERTRALINE HCL 50 MG TABLET PO SCH (07:54)
[2018-09-01] MEDS: LISINOPRIL 20 MG TAB PO SCH (07:54)
[2018-09-01] MEDS: CEROVITE ADV FORMULA TAB PO SCH (07:55)
[2018-09-01] MEDS: CeleBREX 200 MG CAP PO SCH (07:55)
[2018-09-01] MEDS: ASPIRIN 81 MG ECTAB PO SCH (07:55)
[2018-09-01] MEDS: DOCUSATE SODIUM 100 MG CAP PO SCH ×2 (07:55→07:58)
[2018-09-01] MEDS: hydroCHLOROthiazide 25 MG TAB PO SCH (07:55)
[2018-09-01] MEDS: CALCIUM 600MG + VIT D 400 IU TAB PO SCH (07:55)
--- NOTE | 2018-09-13 03:04 | Discharge Summary ---
HISTORY OF PRESENT ILLNESS: This is a 78-year-old female patient of Dr. Sheets's complaining of chronic left knee pain, longstanding, now progressively getting worse. The patient failed conservative treatment and elected to proceed with a left total knee arthroplasty. PAST MEDICAL HISTORY: Benign heart murmur, hypertension, asthma, seasonal allergies, anxiety, osteoarthritis, hiatal hernia, obesity, breast cancer and vocal cord cancer. POSTOPERATIVE COURSE: The patient underwent a left total knee arthroplasty on 08/30/2018. She was followed closely with medical consultation, DVT prophylaxis in the form of aspirin, physical therapy and pain control. The patient did well postoperatively and was discharged on postoperative day #2. PHYSICAL EXAMINATION: On discharge, left knee Silverlon dressing was clean, dry and intact. There was no redness or drainage. She had no calf tenderness. Negative Homans sign. Ankle and toes were mobile. Neurologically and neurovascularly she is intact in her left lower extremity. DIAGNOSES: Status post left total knee arthroplasty, benign heart murmur, hypertension, asthma, seasonal allergies, anxiety, osteoarthritis, hiatal hernia, obesity, breast cancer and vocal cord cancer. PLAN: The patient was discharged home with home health services. She will continue her preadmission medication with the addition of aspirin twice daily for DVT prophylaxis and pain medications as needed. The patient will follow up with Dr. Sheets as scheduled as an outpatient.
--- NOTE | 2018-09-13 03:17 | Discharge Summary ---
HISTORY OF PRESENT ILLNESS: This is a 78-year-old female patient of Dr. Sheets, complaining of chronic left knee pain and instability. She was diagnosed with end-stage osteoarthritis per clinical and radiographic exams. The patient elected to proceed with a left total knee arthroplasty. PAST MEDICAL HISTORY: Benign heart murmur, hypertension, asthma, seasonal allergies, anxiety, osteoarthritis, hiatal hernia, obesity, breast cancer. DICTATION ENDS HERE
== END 2018-09-01 09:54 | disposition home health service (06) | DRG 470 ==
LOC: ASU 05:04 → 3E 09:41